=== PATIENT | male | born 1975 | race Two or more races ===

== ENCOUNTER 2016-09-07 15:22 | Emergency (ER) | payer OTHER ==
[2016-09-07 15:35] VITALS: O2SAT 95
[2016-09-07 16:13] VITALS: BP 118/86; RESP 16; TEMP 99.1
--- NOTE | 2016-09-07 16:34 | EDPHY ---
H & P Stated Complaint: TKR at [facility] ctr 08/26.Home health sent pt here for redness Time Seen by Provider: 09/07/16 15:41 HPI/ROS: CHIEF COMPLAINT: right knee evaluation HISTORY OF PRESENT ILLNESS: 40-year-old male presents emergency department as he was sent from his home health physical therapist for a right knee check. Patient had a total knee replacement at [facility] by Dr. Cruz 2 weeks ago. Today was the patient's 1st physical therapy appointment. Patient reports his pain and swelling have been improving, he denies fevers or chills. No increase in pain. The physical therapist was concerned about the redness in his knee and advised him to come to the emergency department. REVIEW OF SYSTEMS: A comprehensive 10 point review of systems is otherwise negative aside from elements mentioned in the history of present illness. 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 T7 fx. R knee mcl & pcl. l ankle surg - Social History Smoking Status: Never smoked - Physical Exam Exam: GEN: Awake, alert, oriented, no acute distress RESP: nl resp effort MSK: Right knee with diffuse swelling, mild warmth, [place] intact to incision , no drainage ecchymosis surrounding knee, no fluctuance, 2+ pedal pulses, sensation intact to light touch, knee lacks 5-10 degrees of extension. Constitutional: Initial Vital Signs Temperature (C) 36.5 C 09/07/16 15:25 Heart Rate 102 H 09/07/16 15:25 Respiratory Rate 18 09/07/16 15:25 Blood Pressure 131/77 H 09/07/16 15:25 O2 Sat (%) 95 09/07/16 15:25 O2 Delivery Mode Room Air Allergies/Adverse Reactions: No Known Allergies Allergy (Verified 11/21/15 10:25) Home Medications: Medication Instructions Recorded Oxycodone HCl 11/21/15 Cyclobenzaprine [Flexeril 10 MG 10 mg PO 09/07/16 (*)] Medical Decision Making ED Course/Re-evaluation: Dr. Leon is on-call for Ortho, he was in the department and I had him take a look at this patient's knee, he agrees this knee does not appear to be infected , no evidence of cellulitis. I called at [facility] and spoke to the orthopedist on-call. He would like the patient to be seen in the office tomorrow. He is to call the office in the morning and schedule this appointment to see Dr. Dorsey who will be in the office. The patient is afebrile, has no drainage from his incision, no increase in pain or swelling. He has ecchymosis surrounding his knee, no evidence of cellulitis. The patient is discharged with instructions to follow up with his orthopedist tomorrow as discussed and return to the emergency department for worsening symptoms, fevers , swelling, increased pain, drainage, any other questions or concerns. The patient is comfortable with this plan. Departure - Departure Disposition: Home, Routine, Self-Care Clinical Impression: Encounter for postoperative wound check Condition: Good Instructions: Precautions after Total Joint Replacement Surgery (ED) Additional Instructions: Rest, ice, elevate. Take your medications as prescribed by your surgeon. Call office in the morning to schedule an appointment to be seen tomorrow. You should make an appointment to see Dr. Dorsey. Tell them you were seen here in the ER today. Return to the emergency department for any fevers, increased pain, increased redness, other questions or concerns. Descanse, hielo, eleve. [place] ericka medicamentos rachelle le fueron recetados por martinez cirujano. Llame a la oficina del Dr. Randle en la manana para programar emiliano woody para ser visto manana. Usted debe hacer emiliano woody para lacho al Dr. Dorsey. Digales que fue visto aqui en el cuarto de emergencias hoy. Regrese al departamento de emergencias por cualquier, fiebre, aumento de dolor, aumento del enrojecimiento , u otras preguntas o preocupaciones. Referrals: Willian Sanchez [Other] - As per Instructions
[2016-09-07 17:00] VITALS: PULSE 97
== END 2016-09-07 16:57 | disposition home or self-care (01) ==
DX: M25.461 Effusion, right knee (principal); Z48.01 Encounter for change or removal of surgical wound dressing